=== PATIENT | male | born 1970 | race Two or more races ===

== ENCOUNTER 2022-08-09 23:39 | Inpatient (IN) | payer OTHER ==
[~2022-08-09] VITALS: Ht 172.7 cm; Wt 90.7 kg
[2022-08-09] MEDS ORDERED: LIPITOR40 M1 PO (23:58)
[2022-08-09] MEDS ORDERED: ARMOUR THYROID60 M1 PO (23:59)
--- NOTE | 2022-08-10 00:02 | NUR ---
PTE REFIERE DOLOR ABDOMINAL DSDE ESTRA MANANA Y EL PADESE DE DIVERTICULOS. XD ACOMODA EN FAHAD .
--- NOTE | 2022-08-10 06:07 | NUR ---
SE EDUCA A PTE SOBRE [place] MEDICO ESTA REFIERE ENTENDER. SE MELQUIADES MUESTRAS DE LABOORATORIO UTILIZANDO MEDIDAS ASEPTICAS, SE MELQUIADES MUESTRAS DE LABORATORIO UTILIZANDO MEDIDAS ASEPTICAS. SE COLOCA H/L A PTE Y SE ADMINISTRAN MEDICAMENTOS LOS CUALES [place]. SE NOTIFICA ESTUDIO DE CT Y SONGRAFIA PENDIENTES A REALIZAR.
--- NOTE | 2022-08-10 08:17 | NUR ---
SE REALIZA ADMINISTRACION DE MEDICAMENTOS POR ORDEN MEDICA. SE ORIENTA A PACIENTE SOBRE USO Y EFECTOS.
== END 2022-08-16 13:05 | disposition home or self-care (01) | DRG 417 ==
LOC: ER 23:39 → MEDJ 08-10 11:55
PROVIDERS: Surgery; ADMIT Internal Medicine; ATTEND Internal Medicine
PROC: CF141ZZ Planar Nuclear Medicine Imaging of Gallbladder using Technetium 99m (Tc-99m) (ICD-10-PCS; 2022-08-11)
PROC: 0FT44ZZ Resection of Gallbladder, Percutaneous Endoscopic Approach (ICD-10-PCS; principal; 2022-08-14 08:00)
DX: K81.1 Chronic cholecystitis (principal); K85.10 Biliary acute pancreatitis without necrosis or infection; I10 Essential (primary) hypertension; Z20.822 Contact with and (suspected) exposure to COVID-19; E03.9 Hypothyroidism, unspecified